=== PATIENT | male | born 1950 | race Caucasian/White ===

== ENCOUNTER → 2018-09-01 | Outpatient (CLI) | payer MEDICARE | LOC: RAD 10:00 | DX: M51.17 Intervertebral disc disorders with radiculopathy, lumbosacral region (principal); M43.16 Spondylolisthesis, lumbar region ==

== ENCOUNTER → 2018-09-04 | Outpatient (CLI) | payer OTHER | LOC: MRI 09:16 | DX: M47.26 Other spondylosis with radiculopathy, lumbar region (principal); M48.07 Spinal stenosis, lumbosacral region; M51.17 Intervertebral disc disorders with radiculopathy, lumbosacral region ==

== ENCOUNTER → 2018-09-09 | Outpatient (CLI) | payer OTHER ==
[~2018-09-09] VITALS: Ht 188 cm; Wt 104.3 kg
[~2018-09-09] MED LIST: ASPIR 8181 MG PO; BYSTOLIC2.5 MG PO; CARDIZEM CD240 MG PO; CINNAMON500 MG PO; FISH OIL 1,001000 M2 PO; FOLIC ACID1 MG PO; GINKGO BILOBA60 M1 PO; GLUCOSAMINE HC500 MG PO; HYDROCHLOROTHIA25 M2 PO; LISINOPRIL20 MG PO; METHOTREXATE 22.5 MG PO; NAPROSYN500 MG PO; SAW PALMETTO450 MG PO; TIMOLOL GL0.5 %/5 M1 OPHTHALMIC; UNICOMPLEX M TA1 TA1 PO; VITAMINC500 PO; ZINC CHELATE50 MG PO
--- NOTE | ~2018-09-09 | HPC ---
[facility] [address] [address] PAIN MANAGEMENT CONSULTATION Name: ABY EATON Room #: REG [facility].#: [id number] Admission: 09/09/18 Attend Phys: Guillaume Sherman DO Discharge: Date of : 54 Report #: [id number] THIS REPORT FOR: //name// CC: Guillaume Arellano MD DATE OF SERVICE: 09/09/2018 CHIEF COMPLAINT: Low back pain, bilateral posterolateral thigh pain. HISTORY OF PRESENT ILLNESS: As you know, the patient is a 68-year-old male who reports longstanding history of low back pain, bilateral posterior thigh pain. He indicates pain began in 2013. No inciting injury or trauma. He continues to experience pain up to a level of 7/10. The patient has been discussing this with his ion exchange operator, Dr. Walker Arellano who ultimately sent the patient for imaging study to further evaluate. The patient apparently suffers from seronegative rheumatoid arthritis and there were concerns that his seronegative rheumatoid arthritis was affecting low back. X-ray imaging showed multilevel mild to moderate degenerative disk changes typical for the patient's age. Minimal anterolisthesis of L4 and L5 without pars defect. The patient then underwent MRI, which showed age-related findings. He was subsequently referred to our clinic as he was not seeing improvement in symptoms. The patient indicates today pain is intermittent, describes the pain as burning, shooting. He places current pain score 3/10, daily average of 3/10, worst the pain has been is 7/10. The patient states pain is exacerbated with standing still, improves with moving and/or repositioning. He has been referred to our service to discuss the possibility of undergoing epidural injection to address suspected lumbar radiculopathy. PAST MEDICAL HISTORY: 1. Seronegative rheumatoid arthritis. 2. Osteoarthritis. 3. Hypertension. 4. Degenerative joint disease. 5. Chronic pain syndrome. PAST SURGICAL HISTORY: Tonsillectomy. Cataract surgery x 2. SOCIAL HISTORY: The patient denies tobacco, IV or illicit drug use. Admits to 2 alcohol beverages per day. He is retired, retired in 12/2016. He is not receiving workmen's compensation nor is he trying to obtain disability benefits. He is not in litigation in regards to pain. He is accompanied by his present in room today. [address] [address] PAIN MANAGEMENT CONSULTATION Name: ABY EATON MULU Room #: REG [facility] Landy#: [id number] Admission: 09/09/18 Attend Phys: Guillaume Sherman DO Discharge: Date of : 54 Report #: [id number] REVIEW OF SYSTEMS: Positive for eye disease, wearing corrective eyewear, cataracts, nosebleeds, heart trouble, frequent urination, nocturia, sexual difficulty, varicose veins, numbness and tingling sensations, slow to heal after cuts and seronegative rheumatoid arthritis. All other review of systems is negative per 12-point review of systems other than those listed in history of present illness. Pain impact score 9/70 indicating mild interference of daily activities secondary to pain. ALLERGIES: TOPICAL CORTISONE. CURRENT MEDICATIONS: Methotrexate 2.5 mg once a week, ginkgo biloba 60 mg per day, glucosamine 500 mg once a day, saw palmetto 450 mg per day, cinnamon bark 500 mg once a day, ascorbic acid 500 mg once a day, omega-3 fish oil 1 tab per day, zinc 50 mg per day, aspirin 81 mg per day, folic acid 1 mg per day, multivitamin 1 tab per day, Bystolic 2.5 mg once a day, hydrochlorothiazide 25 mg per day, diltiazem CD 240 mg once a day, lisinopril 20 mg per day, naproxen 500 mg twice a day, timolol 1 drop each eye per day. IMAGING: X-ray lumbar spine obtained 09/01/2018 shows multilevel mild to moderate degenerative changes within the disks, minimal anterolisthesis L4 without pars defect. MRI of lumbar spine obtained on 09/04/2018 shows L1-L2 at bilateral facet hypertrophy. No significant central canal neural foraminal stenosis. L2-L3, broad-based posterior disk bulge, bilateral facet arthropathy, ligamentum flavum hypertrophy. No significant central canal neural foraminal narrowing. L3-L4, broad-based posterior disk bulge, bilateral facet arthropathy, ligamentum flavum hypertrophy, no central canal or neural foraminal stenosis. L4-L5, broad-based posterior disk bulge, bilateral facet hypertrophy, no significant central canal. No significant right and moderate left neural foraminal narrowing. L5-S1 posterior central disk herniation, bilateral facet arthropathy. No central canal stenosis, [id number] bilateral neural foraminal narrowing. PQRS: The patient has known osteoarthritis of the low back. He also has diagnosis of seronegative rheumatoid arthritis. He places pain intensity 3/10. He is not a fall risk, has not had a fall in the last 3 months. He is not on blood thinners. He is treated for hypertension with multiple agents. He is not on opioids. He has a low addiction potential for opioid abuse. His pain impact score shows mild interference of daily activities secondary to pain. PHYSICAL EXAMINATION: VITAL SIGNS: Blood pressure 127/73, pulse 83, respiratory rate 16 and unlabored. The patient is 98% on room air, height 6 feet 2 inches tall, weight 230 pounds, BMI calculated 29.5. [facility] [address] [address] PAIN MANAGEMENT CONSULTATION Name: ABY EATON Room #: REG [facility]#: [id number] Admission: 09/09/18 Attend Phys: Guillaume Sherman DO Discharge: Date of : 54 Report #: [id number] GENERAL: Well-developed, well-nourished, well-hydrated, overweight 68-year-old male appearing stated age, placing current pain score 3/10. HEENT: Normocephalic, atraumatic. Pupils equal, round, reactive to light. Extraocular muscles are intact. Sclerae nonicteric without injection. NEUROLOGIC: Cranial nerves 2-12 grossly intact. Speech fluent. The patient deemed a good historian. LUNGS: Clear. No wheeze, rhonchi or rales. CARDIOVASCULAR: Regular. No appreciable gallop, no rub. ABDOMEN: Soft, mildly obese, normoactive bowel sounds. EXTREMITIES: Show no clubbing, no cyanosis, no edema. MUSCULOSKELETAL: Lower extremity strength appears symmetrical 5/5. He is intact to light touch from L1 through S2 dermatomes. Seated straight leg raising negative. Supine straight leg raising negative. Stanislav's test negative. Modified Gaenslen's is positive for axial low back pain. Ankle clonus negative. Babinski is negative. Gait appears normal. Stance slightly forward flexed lumbar spine. The patient is able to rise from seated position without difficulty. Lumbar provocation testing is met with mild increase in pain. ASSESSMENT: 1. Lumbar radicular symptoms. 2. Lumbosacral spondylosis with radicular symptoms. 3. Neural foraminal stenosis of lumbar spine. 4. Facet arthropathy of the lumbar spine. 5. Chronic intractable pain. PLAN: 1. Based on today's physical exam, the history the patient provides, the description the patient uses in regards to pain as well as location of symptoms, likely source of the patient's pain is more related to the facet arthropathy at the L4-L5 and L5-S1 level. He does appear to have mild radicular symptoms likely due to the foraminal stenosis at L5-S1. We discussed with the patient treatment options for lumbar radicular symptoms today, the following was discussed with the patient. We discussed physical therapy, stretching exercises, core strengthening, which will alleviate the patient's axial back pain to a great degree. This will need to be initiated either prior to or after injection therapies if recommended. We discussed medication management with escalating doses of nonsteroidal anti-inflammatories as a treatment option. We discussed epidural injections for which the patient was referred to our clinic. We also discussed surgical options, which may ultimately be necessary if no improvement with other treatment options. After reviewing the risks and benefits of all proposed treatment options, the patient chose to move forward with lumbar epidural injection. 2. The patient indicates today, he cannot undergo the epidural injection due to scheduling conflict. He will make an appointment with our clinic next week to undergo the first in a series of lumbar epidural injections. At that time, we will discuss the risks and the benefits of the procedure with the patient. We [address] [address] PAIN MANAGEMENT CONSULTATION Name: ABY EATON MULU Room #: REG [facility] Landy#: [id number] Admission: 09/09/18 Attend Phys: Guillaume Sherman DO Discharge: Date of : 54 Report #: [id number] will obtain authorization and consent to undergo the procedure and we will keep you apprised of his response. 3. No medication changes made at today's visit. The patient will continue current medical therapy as previously prescribed. 4. We will see the patient back in followup visit next week per the patient's request to undergo the first in a series of epidural injections under fluoroscopic guidance to address suspected lumbar radicular symptoms. 5. We wish to thank Dr. Arellano for the referral of the patient to our clinic. We will keep you apprised of his response to treatment as we address suspected lumbar radiculopathy. <ELECTRONICALLY SIGNED> By: Guillaume Sherman DO 09/15/18 [id number] Guillaume Sherman DO /nt
[2018-09-09 11:34] VITALS: BP 127/73
== END ==
LOC: PAIN 07:31
DX: M06.00 Rheumatoid arthritis without rheumatoid factor, unspecified site (principal); M19.90 Unspecified osteoarthritis, unspecified site; I10 Essential (primary) hypertension; G89.4 Chronic pain syndrome